=== PATIENT | male | born 1970 | race American Indian/Alaskan Native ===

== ENCOUNTER 2018-02-06 19:34 | Emergency (ER) | payer MEDICAID ==
[2018-02-06 19:55] VITALS: BP 109/73; PULSE 72; RESP 20; TEMP 98.5; O2SAT 97
[2018-02-06] MEDS ORDERED: Sodium Chloride 0.9% 1,000 ML IV ONE (20:10)
--- NOTE | 2018-02-06 20:17 | C.PDOC ---
History Of Present Illness 47 y/o male without significant PMHx comes in for evaluation of diffuse lower back pain radiating down the bilateral legs, intermittently for the past few months. Patient reports pain has worsened over the past few days. Also reports he feels dizzy, described as lightheadedness with intermittent palpitations. Denies recent illness, fever, chills, severe headache, visual changes, focal deficits, vertigo, chest pain, wheezes, SOB, dyspnea, diaphoresis, abdominal pain, nausea, vomiting, UTI symptoms, denies weakness, sensory or vascular deficist to B/L UEs and LEs. Ambulate to ED for evaluation, not in any apparent distress. Time Seen by Provider: 02/06/18 19:49 Chief Complaint (Nursing): Back Pain History Per: Patient History/Exam Limitations: no limitations Onset/Duration Of Symptoms: Days Current Symptoms Are (Timing): Still Present Past Medical History Reviewed: Historical Data, Nursing Documentation, Vital Signs Vital Signs: Last Vital Signs Temp 98.5 F 02/06/18 19:54 Pulse 72 02/06/18 19:54 Resp 20 02/06/18 19:54 BP 109/73 02/06/18 19:54 Pulse Ox 97 02/06/18 22:13 - Medical History PMH: No Chronic Diseases Family History: States: Unknown Family Hx - Social History Hx Tobacco Use: No Hx Alcohol Use: No Hx Substance Use: No - Immunization History Hx Tetanus Toxoid Vaccination: No Hx Influenza Vaccination: No Hx Pneumococcal Vaccination: No Review Of Systems Except As Marked, All Systems Reviewed And Found Negative. Constitutional: Negative for: Fever, Chills Eyes: Negative for: Vision Change ENT: Negative for: Throat Pain Cardiovascular: Positive for: Palpitations (intermittent), Light Headedness. Negative for: Chest Pain Respiratory: Negative for: Cough, Shortness of Breath, SOB with Excertion, Wheezing Gastrointestinal: Negative for: Nausea, Vomiting, Abdominal Pain Genitourinary: Negative for: Dysuria, Frequency, Incontinence Musculoskeletal: Positive for: Back Pain, Leg Pain Neurological: Positive for: Dizziness. Negative for: Weakness, Numbness, Headache Physical Exam - Physical Exam Appears: Well, Non-toxic, No Acute Distress Skin: Normal Color, Warm, No Rash, No Ecchymosis Head: Normacephalic Eye(s): bilateral: PERRL Ear(s): Bilateral: Normal Nose: No Flaring, No Discharge Oral Mucosa: Moist Throat: No Erythema, No Drooling Neck: Trachea Midline, No Midline Cervical Tenderness, Supple Chest: Symmetrical, No Deformity, No Tenderness Cardiovascular: Rhythm Regular, No Murmur, No JVD, Other ((-) carotid bruits B/L ) Respiratory: No Rales, No Rhonchi, No Wheezing Gastrointestinal/Abdominal: Soft, No Tenderness, No Distention, No Guarding Back: No CVA Tenderness Extremity: Normal ROM, No Pedal Edema, No Calf Tenderness, No Deformity, No Swelling Pulses: Left Dorsalis Pedis: Normal, Right Dorsalis Pedis: Normal Neurological/Psych: Oriented x3, Normal Speech, Normal Motor, Normal Sensation, Normal Reflexes, Other (No focal deficits) ED Course And Treatment - Laboratory Results Result Diagrams: 02/06/18 20:22 02/06/18 20:22 Lab Interpretation: No Acute Changes ECG: Interpreted By Me, Viewed By Me ECG Rhythm: Sinus Rhythm Interpretation Of ECG: SR@73/min, NAD, 1st degrees AVB, no acute T wave or ST-T changes. O2 Sat by Pulse Oximetry: 97 (RA) Pulse Ox Interpretation: Normal - Radiology CXR: Interpreted by Me, Viewed By Me CXR Interpretation: Yes: No Acute Disease Progress Note: Blood work and urine sent for analysis. CXR and EKG ordered. Patient given IV fluids and Toradol. Pt was OBS in ED for 2 hours. On re- evaluation, pt is afebrile, hemodynamical stable. Non-toxic. Ambulatory in ED with stable gait. [id number]% rA. Neck: Supple, (-) JVD, (-) carotid bruits B/ L. ENT: no acute findings. Lungs: CTA B/L, BS equal B/L. CVS: (+)S1S2, reg. ( -) murmur. Abd: benign, (-) guarding, (-) rebound, (-) RLQ tenderness. Back: ( -) CVA tenderness. Neurologicaly intact. Blood work review, no acute changes, Troponin- negative. CXR, EKG- normal study. Case discussed with and discharge with outpt f/u recommend. Pt has clinical findings c/w lumbar radiculopathy, dizziness,. Pt and aprent advised. Ref. to f/u with PMD in 2 - 3 days for re-eavl. return if any new changes Disposition Counseled Patient/Family Regarding: Studies Performed, Diagnosis, Need For Followup, Rx Given - Disposition Referrals: [facility] [Outside] Disposition: HOME/ ROUTINE Disposition Time: 21:39 Condition: STABLE Additional Instructions: Encourage fluids Take pain medication as prescribed Follow up with PMD, Cardiology in2 -3 days for re-evaluation. return to ED if any worsening or new changes. Prescriptions: Gabapentin [Neurontin] 300 mg PO HS #10 cap Ibuprofen [Motrin Tab] 600 mg PO TID #20 tab Methocarbamol [Robaxin] 500 mg PO TID #14 tab Instructions: Dizziness, Nonvertigo, (DC), Radiculopathy Forms: [employer] [employer] (Italian), [employer] (Persian) - Clinical Impression Clinical Impression: Lumbar radiculopathy, Dizziness - PA / TRACK HELPER / Resident Statement MD/DO has reviewed & agrees with the documentation as recorded. - Scribe Statement The provider has reviewed the documentation as recorded by the Scribe (Tatiana Henderson) All medical record entries made by the Scribe were at my direction and personally dictated by me. I have reviewed the chart and agree that the record accurately reflects my personal performance of the history, physical exam, medical decision making, and the department course for this patient. I have also personally directed, reviewed, and agree with the discharge instructions and disposition.
[2018-02-06 20:25] LABS: EOS # 0.1 K/uL (0.0-0.7); LYMPH # 1.7 K/uL (1.0-4.3); MEAN CORPUSCULAR HEMOGLOBIN 30.3 pg (27.0-31.0)
[2018-02-06] MEDS ORDERED: Sodium Chloride 0.9% 1,000 ML ONE ×2 (20:27)
[2018-02-06 20:28] LABS: URINE BILIRUBIN NEGATIVE (NEGATIVE); URINE BLOOD NEGATIVE (NEGATIVE); URINE CLARITY Clear (Clear); URINE COLOR Yellow (YELLOW); URINE GLUCOSE (UA) NORMAL (Normal); URINE LEUKOCYTE ESTERASE NEG Leu/uL (Negative); URINE PROTEIN NEGATIVE (NEGATIVE); URINE UROBILINOGEN NORMAL mg/dL (0.2-1.0)
[2018-02-06 20:31] LABS: MONO # 0.2 K/uL (0.0-0.8)
[2018-02-06 20:35] LABS: INR 1.1; PROTHROMBIN TIME 11.5 SECONDS (9.7-12.2)
[2018-02-06 20:37] LABS: ALB/GLOB RATIO 1.6 (1.0-2.1); ALBUMIN 4.4 g/dL (3.5-5.0); ALT/SGPT 43 U/L (21-72); AST/SGOT 37 U/L (17-59); BLOOD UREA NITROGEN 13 mg/dL (9-20); GFR AFRICAN-AMERICAN > 60; GFR NON-AFRICAN AMERICAN > 60
[2018-02-06 20:39] LABS: BASO % 0.9 % (0.0-2.0); HEMOGLOBIN 14.6 g/dL (12.0-18.0); LYMPH % 38.1 % (20.0-40.0); MEAN CELL VOLUME 88.2 fL (80.0-94.0); MEAN CORPUSCULAR HGB CONC 34.4 g/dL (33.0-37.0); MEAN PLATELET VOLUME 9.6 fL (7.2-11.7); MONO % 5.6 % (0.0-10.0); NEUT # 2.3 K/uL (1.8-7.0); NEUT % 52.4 % (50.0-75.0); NRBC % 0.2 % (0.0-2.0); RBC 4.83 Mil/uL (4.40-5.90); RED CELL DISTRIBUTION WIDTH 13.3 % (11.5-14.5); WHITE BLOOD COUNT 4.4 K/uL (4.8-10.8)
[2018-02-06 20:43] LABS: BARBITURATES, UR NEGATIVE (NEGATIVE); BENZODIAZEPINES, UR NEGATIVE (NEGATIVE); OPIATES, UR NEGATIVE (NEGATIVE); PHENCYCLIDINE, UR NEGATIVE (NEGATIVE)
--- NOTE | 2018-02-07 07:34 | RAD ---
Date of service: 02/06/2018 HISTORY: SOB COMPARISON: Comparison is made with 01/07/2015 TECHNIQUE: Chest PA and lateral FINDINGS: LUNGS: Small bibasilar opacities are noted may represent atelectasis. PLEURA: No significant pleural effusion identified. No pneumothorax apparent. CARDIOVASCULAR: Normal. OSSEOUS STRUCTURES: No significant abnormalities. VISUALIZED UPPER ABDOMEN: Normal. OTHER FINDINGS: None. IMPRESSION: Bibasilar opacities may represent atelectasis or less likely infiltrate.
--- NOTE | 2018-02-08 21:32 | CARD ---
APPROVED REPORT Date of service: 02/06/2018 EKG Measurement Heart [id number] <Conclusion> Sinus rhythm with 1st degree AV block Otherwise normal ECG
== END 2018-02-06 22:33 | disposition home or self-care (01) ==
LOC: C.ER 19:34
DX: M54.16 Radiculopathy, lumbar region (principal); R42 Dizziness and giddiness
CPT/HCPCS: 71046; 80053; 80324; 80345; 80346; 80349; 80353; 80358; 80361; 81001; 83992; 84443; 84484; 85025; 85610; 85730; 96361; 96374; 99284; J1885; J7030